=== PATIENT | male | born 2005 | race Hispanic/Latino ===

== ENCOUNTER 2024-01-08 21:13 | Emergency (ER) | payer OTHER ==
[~2024-01-08] VITALS: Ht 177.8 cm; Wt 81.6 kg
[2024-01-08] MEDS ORDERED: IBUPROFEN200 MG PO (21:47)
[2024-01-08 23:09] VITALS: PULSE 73; RESP 18; TEMP 98.4; O2SAT 98
== END 2024-01-08 23:09 | disposition home or self-care (01) ==
LOC: FSED 21:28
DX: S93.504A Unspecified sprain of right lesser toe(s), initial encounter (principal); Y93.66 Activity, soccer; Y92.322 Soccer field as the place of occurrence of the external cause
CPT/HCPCS: 99283